=== PATIENT | female | born 1980 | race Caucasian/White ===

== ENCOUNTER → 2017-04-16 | Outpatient (CLI) | payer BC ==
--- NOTE | 2017-04-17 09:29 | MAM ---
EXAM DESCRIPTION: 3D Screening BILATERAL CLINICAL HISTORY: 37 yearsFemaleSCREENING . Tenderness around the nipple regions bilaterally. No family history of breast cancer. Premenopausal.. COMPARISON: Baseline study at this facility. No prior reports available. TECHNIQUE: Bilateral CC and MLO projection full-field images, 3-D tomosynthesis digital mammographic technique. Also bilateral synthesized CC/ MLO full-field images. CAD not utilized. FINDINGS: The breast parenchymal density pattern is: Heterogeneously dense breast tissue, which may obscure small masses. No skin thickening or nipple retraction small vascular calcification in the axillary region of the right breast. Left axillary lymph nodes. Focal asymmetry in the posterior third of the left breast near the pectoral muscle at the 100 clock position, approximately 5 cm from the superior skin surface. Not associated with microcalcifications. No focal, stellate mass or density, , and no suspicious microcalcifications bilateral breasts. No focal asymmetry in the right breast. IMPRESSION: BI-RADS CATEGORY: 0 - INCOMPLETE- Need additional imaging evaluation. FOLLOW-UP: Recall for additional imaging: Targeted ultrasound of the region of interest in the posterior third of the upper-outer quadrant of the left breast. Written communication concerning the IMPRESSION and Follow-up, will be mailed to the patient and referring health care provider. Imaging Electronically signed by: Ketan Atkinson MD 04/17/2017 9:27 AM CDT
== END | disposition home or self-care (01) ==
LOC: MAMMO 14:14
PROVIDERS: ATTEND Family Medicine
DX: Z12.31 Encounter for screening mammogram for malignant neoplasm of breast (principal)
CPT/HCPCS: 77063; G0202

== ENCOUNTER → 2017-04-21 | Outpatient (CLI) | payer BC ==
--- NOTE | 2017-04-21 15:29 | US ---
EXAM DESCRIPTION: Breast,Left CLINICAL HISTORY: 37 yearsFemaleABNORMAL MAMMO COMPARISON: Digital 3-D tomosynthesis left breast 04/16/2017. TECHNIQUE: Transcutaneous scanning of the upper outer quadrant of the posterior third of the left breast utilizing two-dimensional and Doppler modes. Scanning performed by the crew leader only. FINDINGS: Oval-shaped mass measuring approximately 6.2 x 4.4 mm at the 100 clock position of the left breast 4 cm from the nipple. Mostly well circumscribed borders. Parallel orientation. Enhancing posterior features. No significant vascularity. Most likely a lymph node. No discrete solid masses. No cysts. No parenchymal edema or large calcifications. IMPRESSION: BI-RADS CATEGORY: 2 - BENIGN FINDINGS. FOLLOW UP: Return to routine digital bilateral mammographic screening, at age 40. Written communication explaining the IMPRESSION and follow-up, will be mailed to the patient and referring health care provider. According to the [employer], yearly mammograms are recommended starting at age 40 and continuing as long as a woman is in good health. Any breast change noted on a breast self-exam should be reported promptly to the patient's healthcare provider. Breast MRI is recommended for women with an approximately 20-25% or greater lifetime risk of breast cancer, including women with a strong family history of breast or ovarian cancer and women who have been treated for Hodgkin's disease. A negative mammographic report should not delay tissue diagnosis in patients with significant clinical history or physical findings. Extremely dense breast tissue limits the sensitivity of digital mammography. The findings and the follow-up plan were reviewed in person with the patient after the examination. Electronically signed by: Ketan Atkinson MD 04/21/2017 3:28 PM CDT
== END | disposition home or self-care (01) ==
LOC: US 14:01
PROVIDERS: ATTEND Family Medicine
DX: R92.8 Other abnormal and inconclusive findings on diagnostic imaging of breast (principal)

== ENCOUNTER → 2017-06-23 | Outpatient (CLI) | payer BC | END | disposition home or self-care (01) | LOC: LAB.O 16:00 | PROVIDERS: ATTEND Nurse Practitioner Family | DX: M54.9 Dorsalgia, unspecified (principal) ==